=== PATIENT | female | born 1950 | race Caucasian/White ===

== ENCOUNTER 2016-07-02 09:39 | Day surgery (SDC) | payer OTHER ==
[~2016-07-02] VITALS: Ht 162.6 cm; Wt 68.0 kg
[~2016-07-02 09:39] MED LIST: 0.9% Sodium Chloride 1,000 ML IV SCH; ASCO500C6 PO; ATOR20TA65 PO; CA C1TAB77 PO; CHOL5000 PO; DENO60DI SQ; LEVO88TA28 PO; OMEG1CAP99 PO; RANI150C4 PO; Sodium Chloride LOK Flush 10 mL Syringe IV PRN; TRAZ-115 PO; [UNRECOGNIZED DRUG - CODE] SL; fentaNYL-PF 50 mCg/mL 2 mL Inj IVPUSH PRN
[2016-07-02 10:04] VITALS: BP 136/72; PULSE 56; RESP 16; O2SAT 97
[2016-07-02 10:41] VITALS: BP 119/78; PULSE 67; RESP 16; O2SAT 90
[2016-07-02 10:51] VITALS: BP 113/73; PULSE 73; RESP 16; O2SAT 93
[2016-07-02 11:01] VITALS: BP 123/75; PULSE 62; RESP 16; O2SAT 94
--- NOTE | 2016-07-02 13:41 | ENDO ---
[address] [address] ENDOSCOPY PROCEDURE PATIENT: OSMIN GARCIAS : 1950 MR#: [id number] ADMIT: 07/02/2016 JOB ID: [id number] DATE: 07/02/2016 PROCEDURE: Colonoscopy. INDICATION: Screening. The patient's ASA classification is 2. Mallampati score is 2. MEDICATIONS: 1. Versed 4 mg. 2. Fentanyl 100 mcg. INSTRUMENT USED: PCF H 180 AL. PREPARATION QUALITY: Was fair. PROCEDURE DETAILS: After informed consent was obtained, the patient was brought into the GI suite, where she was placed on oxygen via nasal cannula and monitored with continuous pulse oximeter, telemetry and blood pressure monitoring. A time-out was performed. Then, she was placed in the left lateral decubitus position and medications were administered for sedation. Digital rectal examination was performed and was unremarkable. The colonoscope was then inserted into the rectum and advanced under direct visualization to the cecum, which was identified by the presence of the ileocecal valve and appendiceal orifice. Once the cecum was reached, the colonoscope was withdrawn back into the rectum. Mucosa and lumen were examined. In the rectum, retroflexion was performed. Following retroflexion, remaining air in the rectum was suctioned, and the procedure was completed. FINDINGS: Normal examination from rectum to cecum. IMPRESSION: Normal colonoscopy. RECOMMENDATIONS: Repeat colonoscopy in 10 years, sooner if symptoms should dictate. COMPLICATIONS: None. ESTIMATED BLOOD LOSS: 0.
== END 2016-07-02 23:59 | disposition home or self-care (01) ==
LOC: END 09:39
PROVIDERS: ATTEND Internal Medicine Gastroenterology
DX: Z12.11 Encounter for screening for malignant neoplasm of colon (principal); E78.5 Hyperlipidemia, unspecified; E03.9 Hypothyroidism, unspecified; M81.0 Age-related osteoporosis without current pathological fracture; K21.9 Gastro-esophageal reflux disease without esophagitis; E78.00 Pure hypercholesterolemia, unspecified; Z87.891 Personal history of nicotine dependence
CPT/HCPCS: 99153; G0121; G0500; J7030